=== PATIENT | female | born 1955 | race Caucasian/White ===

== ENCOUNTER 2023-09-29 14:04 | Outpatient (CLI) | payer MEDICARE, SELFPAY ==
--- NOTE | ~2023-09-29 | XR_ITS ---
EXAM: XR abdomen/kub 1V DATE: 09/29/2023 14:28 HISTORY: BILATERAL KIDNEY STONES PREOPERATIVE IMAGING . COMPARISON: None available. FINDINGS: Soft tissue anchors over the mid and left abdomen. Clear lung bases. Normal bowel gas patte rn. No organomegaly. Degenerative changes in the lumbar spine and hips. Pelvic phleboliths. Multiple right lower pole calcifications. The largest on the left measures 2.6 cm. There is a cluster of small er inferior stones in the left lower pole. 11 mm right lower pole stone. IMPRESSION: Bilateral nephrolithiasis. Reviewed, dictated and finalized at location K. LE LAB TECHNICIAN IMPRESSION: Bilateral nephrolithiasis.
== END 2023-09-29 14:05 | disposition home or self-care (01) ==
PROVIDERS: PCP Nurse Practitioner Family; Visit Provider Physician Assistant
DX: N20.0 Calculus of kidney (principal)
CPT/HCPCS: 74018

== ENCOUNTER 2023-11-09 09:35 | Outpatient (CLI) | payer MEDICARE, SELFPAY ==
--- NOTE | 2023-11-09 09:41 | ECG_ITS ---
Measurements Intervals [place] Rate: 62 P: 15 HI: 180 QRS: 14 QRSD: 95 T: 40 QT: 403 QTc: 411 Interpretive Statements SINUS RHYTHM LOW VOLTAGE- PRECORDIAL LEADS POOR R WAVE PROGRESSION, ANTERIOR LEADS CONSIDER INFERIOR INFARCT, AGE INDETERMINATE BORDERLINE T WAVE ABNORMALITY- ANTEROLATERAL LEADS BASELINE ARTIFACT- I, II, III, AVR, AVF ABNORMAL ECG NO PREVIOUS ECG AVAILABLE FOR COMPARISON Electronically Signed On 11-09-2023 10:28:56 TOOL MACHINIST by Denzel Barriga D.O.
[2023-11-09 10:36] LABS: Anion Gap 7 mmol/L (8-16); Blood Urea Nitrogen 26 mg/dL (7-17); Calcium 9.8 mg/dL (8.4-10.2); Carbon Dioxide 28 mmol/L (22-30); Chloride 101 mmol/L (98-107); Estimated Glomerular Filt Rate 49; Glucose 99 mg/dL (65-110); Partial Thromboplastin Time 26.1 SECONDS (22.3-36.8); Potassium 4.3 mmol/L (3.4-5.0); Prothrombin Time 13.7 Seconds (11.1-14.7); Sodium 136 mmol/L (137-145)
== END 2023-11-09 09:36 | disposition home or self-care (01) ==
LOC: ANHSURGERY 09:39
PROVIDERS: Anesthesiology; PCP Nurse Practitioner Family; Visit Provider Urology
DX: N20.0 Calculus of kidney (principal); E11.9 Type 2 diabetes mellitus without complications; Z01.818 Encounter for other preprocedural examination
CPT/HCPCS: 36415; 80048; 85610; 85730; 87086; 87088; 93005

== ENCOUNTER 2023-11-12 00:31 | Day surgery (SDC) | payer MEDICARE, SELFPAY ==
[2023-11-02 09:00] VITALS: BMI 35.2
--- NOTE | 2023-11-02 09:21 | PC.NURSE ---
PRE-OP INSTRUCTIONS PLEASE READ CAREFULLY Report to the Outpatient Waiting Room, entrance under the green pavilion located off [facility], at time _0745_ on date _11/12/23_. Planned Procedure Time: _0945_. Time changes happen often and if your time is changed the preop area will call you the afternoon before. - You and your visitor will be asked to self-screen and do not enter if you have any COVID symptoms. - A mask is optional within the hospital at this time. Patients may have clear liquids (water, carbonated beverages, clear teas, apple juice) until 3 hours prior to surgery (0645 AM) with a maximum of 20 ounces. - No food from midnight until time of surgery Take the following medications with a SIP of water the morning of surgery: _GABAPENTIN, LEVOTHYROXINE, & TYLENOL IF NEEDED_ DO NOT STOP ANY OF YOUR OTHER PRESCRIPTION MEDICATIONS PRIOR TO SURGERY ?EXCEPT THE FOLLOWING Medications to discontinue _ASPIRIN INSTRUCTED BY DR. RUTLEDGE_ Medications to discontinue per ANESTHESIA -_VITAMINS/SUPPLEMENTS 3 DAYS PRIOR TO SURGERY, Date to take last dose 11/08/23_ Please no make-up, nail irish, hairspray, perfume, deodorant, or body powder the day of surgery. No jewelry (including any body piercings) or valuables the day of surgery, leave them at home. Please take a shower or bath the night before, or the morning of, surgery with an antibacterial soap. Wear comfortable, loose fitting clothing. - Jewelry must be removed prior to entering the operating room. Rings and piercings that are not removed may be cut off. - The hospital will not accept responsibility for valuables. - Please leave all valuables, including medications, at home the day of surgery. If you are going home after surgery, a licensed flag car driver must drive you home. - NO public transportation without another adult if you receive anesthesia. - We recommend that an adult stay with you for 24 hours following discharge. - We also recommend that you do not drive, make important decision, drink alcoholic beverages, or take any drugs that were not prescribed by your health care provider for at least 24 hours after your discharge time. Follow any additional instructions given to you from your surgeon. If you or anyone in your household have experienced Covid symptoms in the past week, please notify your surgeon or the nurse liaison at the phone number below for possible testing. Telephone instructions given to _PATIENT_and asked if any additional questions and then verbalized understanding. Patient advised to call surgeon office or pre surgery nurse liaison [phone] if any additional questions.
--- NOTE | 2023-11-05 07:52 | P.HP_ITS ---
History of Present Illness History of Present Illness Consent: Risks, benefits, and alternatives have been discussed and questions answered. Patient agrees to proceed with procedure. Chief complaint: 11mm kidney stone Narrative: Jame Mckeon is a 67 year old female he is known to have history of urolithiasis in the past. She recently presented with a somewhat atypical flank pain. Imaging demonstrated significant bilateral kidney stone burden, greatest on the left. She has a 2.9 cm left renal pelvic stone and a 11 mm right renal calculus. We contemplated percutaneous nephrolithotomy but was unable to get the equipment at [facility] and she has elected, instead, to proceed with left ESWL. She is fully aware that this may require multiple procedures or that lithotripsy may not be effective and alternatives will need to be considered. She is aware of the risk of lithotripsy, included but not limited to, adverse cardiopulmonary events, perinephric hematoma, need for additional procedures and hematuria Review of Systems Review of Systems: All systems reviewed & are unremarkable except as noted in HPI and below PMFSH Social History Social History Smoking status: Never smoker Second hand tobacco smoke exposure: No Alcohol intake: current Alcohol use details: RARELY - STATES 1-2 TIMES A YEAR Substance use: never Substance use type: does not use Living arrangements: with family Spiritual care concerns: No Meds Home Medications and Allergies Home Medications Medication Instructions Recorded Confirmed Type Probiotic 1 tab-cap DAILY 11/02/23 11/02/23 History acetaminophen 325 mg tablet 650 mg PO BID PRN Pain 11/02/23 11/02/23 History (Tylenol) aspirin 81 mg capsule 81 mg PO DAILY 11/02/23 11/02/23 History atorvastatin 20 mg tablet 20 mg PO HS 11/02/23 11/02/23 History calcium carbonate 600 mg-vitamin 2 tablet PO DAILY 11/02/23 11/02/23 History D3 5 mcg (200 unit) tablet cholecalciferol (vitamin D3) 50 50 mcg PO DAILY 11/02/23 11/02/23 History mcg (2,000 unit) capsule citalopram 20 mg tablet 20 mg PO HS 11/02/23 11/02/23 History dapagliflozin propanediol 10 mg 10 mg PO QAM 11/02/23 11/02/23 History tablet (Farxiga) dulaglutide 1.5 mg/0.5 mL 1.5 mg subcut WEEKLY 11/02/23 11/02/23 History subcutaneous pen injector (Trulicity) gabapentin 100 mg capsule See Rx Instructions .Route .COMPLEX 11/02/23 11/02/23 History levothyroxine 50 mcg tablet 50 mcg DAILY 11/02/23 11/02/23 History magnesium 200 mg tablet 400 mg PO BID 11/02/23 11/02/23 History omega 3-ydn-syq-fish oil 1,000 mg 2 cap PO DAILY 11/02/23 11/02/23 History (120 mg-180 mg) capsule (Fish Oil) potassium citrate 99 mg capsule 99 mg BID 11/02/23 11/02/23 History spironolactone 25 mg tablet 25 mg PO DAILY 11/02/23 11/02/23 History Allergies Allergy/AdvReac Type Severity Reaction Status Date / Time No Known Allergies Allergy Verified 11/02/23 08:50 Assessment and Plan Assessment and plan (1) Bilateral renal stones: Code(s): N20.0 - Calculus of kidney Status: Acute Assessment and Plan: * cystoscopy left ureteral stent, left ESWL
[2023-11-12] VITALS (8 sets, daily range): BP systolic 100–138; BP diastolic 64–73; PULSE 83–94; RESP 14–20; TEMP 36.2–36.4; O2SAT 90–99
--- NOTE | ~2023-11-12 | XR_ITS ---
Supine and upright views of the abdomen Clinical history: Lithotripsy COMPARISON: 09/29/2023 Findings: Bowel gas pattern is nonspecific. No evidence for obstruction or free air. Bilateral renal stones are stable from prior exam, including large left renal stone measuring approximately 3 cm in d iameter. Evidence of prior herniorrhaphy. Osseous structures are intact. Impression: Bilateral nephrolithiasis, stable from prior exam. Reviewed, dictated and finalized at location M. IOLOGY PHYSICIAN Impression: Bilateral nephrolithiasis, stable from prior exam.
--- NOTE | 2023-11-12 06:31 | WPDHPUPDATE1 ---
History and Physical Update Update Date/Time: 11/12/23 06:31 History and Physical has been reviewed, including an updated exam of the patient. There are NO changes in the patient's condition. Risks, benefits, and alternatives have been discussed and questions answered. Patient agrees to proceed with procedure.
[2023-11-12 06:53] LABS: Glucose Point of Care 128 mg/dl (65-105)
--- NOTE | 2023-11-12 06:56 | WPDANESEPPF ---
Anes - Initial Pre Proc Eval Procedure: Operation Date: 11/12/23 07:30 Proposed Procedures p Left Extracorporeal Shock Wave Lithotripsy - Sunday Garza MD s Cystoscopy with Left Stent Insertion - Sunday Garza MD Date/Time: 11/12/23 06:56 Surgeon: Sunday Garza MD Pre Op Diagnosis: 11mm kidney stone Patient Data Age: 68 Gender: F Height: 1.52 m Weight: 81.81 kg Allergies Allergy/AdvReac Type Severity Reaction Status Date / Time No Known Allergies Allergy Verified 11/02/23 08:50 Home Medications Medication Instructions Recorded Confirmed Type Probiotic 1 tab-cap DAILY 11/02/23 11/02/23 History acetaminophen 325 mg tablet 650 mg PO BID PRN Pain 11/02/23 11/02/23 History (Tylenol) aspirin 81 mg capsule 81 mg PO DAILY 11/02/23 11/02/23 History atorvastatin 20 mg tablet 20 mg PO HS 11/02/23 11/02/23 History calcium carbonate 600 mg-vitamin 2 tablet PO DAILY 11/02/23 11/02/23 History D3 5 mcg (200 unit) tablet cholecalciferol (vitamin D3) 50 50 mcg PO DAILY 11/02/23 11/02/23 History mcg (2,000 unit) capsule citalopram 20 mg tablet 20 mg PO HS 11/02/23 11/02/23 History dapagliflozin propanediol 10 mg 10 mg PO QAM 11/02/23 11/02/23 History tablet (Farxiga) dulaglutide 1.5 mg/0.5 mL 1.5 mg subcut WEEKLY 11/02/23 11/02/23 History subcutaneous pen injector (Trulicity) gabapentin 100 mg capsule See Rx Instructions .Route .COMPLEX 11/02/23 11/02/23 History levothyroxine 50 mcg tablet 50 mcg DAILY 11/02/23 11/02/23 History magnesium 200 mg tablet 400 mg PO BID 11/02/23 11/02/23 History omega 7-gok-iip-fish oil 1,000 mg 2 cap PO DAILY 11/02/23 11/02/23 History (120 mg-180 mg) capsule (Fish Oil) potassium citrate 99 mg capsule 99 mg BID 11/02/23 11/02/23 History spironolactone 25 mg tablet 25 mg PO DAILY 11/02/23 11/02/23 History Laboratory Tests 11/12/23 06:48 POC Capillary Glucose 128 H mg/dl (65-105) Patient hx anesthesia problems: none Family hx anesthesia problems: none Results Review: All pre-operative results and documents have been reviewed as part of the pre-operative evaluation. [facility] Past Medical History Medical History (Updated 11/12/23 @ 06:57 by Alex Adams MD) Diabetes HTN (hypertension) Obesity YANETH (obstructive sleep apnea) Surgical History Surgical History (Updated 11/12/23 @ 07:00 by Alex Adams MD) H/O: hysterectomy Social History Social History Smoking status: Never smoker Second hand tobacco smoke exposure: No Alcohol intake: current Alcohol use details: RARELY - STATES 1-2 TIMES A YEAR Substance use: never Substance use type: does not use Living arrangements: with family Spiritual care concerns: No Anes - Eval Final PreProcedure Day of Procedure 11/12/23 06:56 Patient weight: normal Heart: regular rate and rhythm Lungs: clear to auscultation Airway: Mallampati scale class II Neurological: alert and oriented Last oral intake: >/= 8 hours ASA classification: III Emergent: no Anesthetic plan: proceed Anesthesia type and monitoring: general LMA and standard monitoring Results Review: All pre-operative results and documents have been reviewed as part of the pre-operative evaluation. Informed Consent: The patient's anesthetic plan and its attendant risks and benefits were discussed with the patient/family/POA. Questions were solicited and answers provided to the satisfaction of the patient/family/POA.
[2023-11-12] MEDS: LACTATED RINGERS 1,000 ML 30 ML IV CONT (07:00)
[2023-11-12] MEDS: ceFAZolin 2 GM/D5W 50 ML 2 GM/50 ML BAG IVPB (07:25)
--- NOTE | 2023-11-12 07:45 | P.OP_ITS ---
Procedure Note - Detailed Date of Procedure 11/12/23 Pre-op Diagnosis Large left kidney stone Post-op Diagnosis Same Procedure Performed Cystoscopy, left ureteral stent placement, left ESWL Surgeon Sunday Garza MD Anesthesia General Description of Procedure The patient was brought to the operative suite where she was placed in the frog- legged position on the Dornier lithotripter table. Flexible cystoscopy was undertaken with a 16F flexible cystoscopy. Her urethra and bladder neck were endoscopically normal. The bladder mucosa was normal and there was a single, orthotopic ureteral orifice bilaterally. A 0.035 glidewire was advanced into the [] renal pelvis under fluoroscopy. A 4.8F J-J ureteral stent was positioned with the proximal coil in the renal pelvis and the distal coil in the bladder. The patient was then repositioned in the supine position and the focal point of the lithotriptor was placed at a large left renal calculus. A total of 2500 shocks were delivered at a power setting of 4. There appeared to be good fragmentation of the stone. The patient tolerated the procedure well and was taken to the recovery room in good condition. Drains Yes Packing No Pathology None sent Condition Stable Disposition PACU
[2023-11-12 08:33] LABS: Glucose Point of Care 121 mg/dl (65-105)
== END 2023-11-12 10:15 | disposition home or self-care (01) ==
PROVIDERS: PCP Nurse Practitioner Family; Visit Provider Urology
PROC: (CPT 50590; principal; 2023-11-12 07:30)
PROC: (CPT 52310; 2023-11-12 07:30)
DX: N20.0 Calculus of kidney (principal); E11.9 Type 2 diabetes mellitus without complications; I10 Essential (primary) hypertension; G47.33 Obstructive sleep apnea (adult) (pediatric); E66.9 Obesity, unspecified; Z68.38 Body mass index [BMI] 38.0-38.9, adult; Z79.84 Long term (current) use of oral hypoglycemic drugs; Z79.85 Long-term (current) use of injectable non-insulin antidiabetic drugs
CPT/HCPCS: 52332; 50590; 74018; 82948; C1769; C2617; J0690; J2405; J2704; J3010; J7120

== ENCOUNTER 2023-11-30 14:10 | Outpatient (CLI) | payer MEDICARE, SELFPAY ==
--- NOTE | ~2023-11-30 | XR_ITS ---
Supine and upright views of the abdomen Clinical history: Kidney stone COMPARISON: 11/12/2023 Findings: Bowel gas pattern is nonspecific. No evidence for obstruction or free air. Evidence of prio r herniorrhaphy. Left ureteral stent is in place. Large left renal stones are essentially unchanged. Right renal stone unchanged. Osseous structures are intact. Impression: Stable bilateral nephrolithiasis. Left ureteral stent in place. Reviewed, dictated and finalized at location . SOLUTIONS ARCHITECT Impression: Stable bilateral nephrolithiasis. Left ureteral stent in place.
== END 2023-11-30 14:11 | disposition home or self-care (01) ==
LOC: ANHIMG 14:14
PROVIDERS: PCP Nurse Practitioner Family; Visit Provider Urology
DX: N20.0 Calculus of kidney (principal)
CPT/HCPCS: 74018

== ENCOUNTER 2024-03-08 09:41 | Outpatient (CLI) | payer MEDICARE, SELFPAY ==
--- NOTE | ~2024-03-08 | XR_ITS ---
EXAMINATION: XR abdomen/kub 1V DATE: 03/08/2024 09:54 INDICATION: Kyphosis of kidney, right-sided. TECHNIQUE: A supine view of the abdomen on 2 radiographs was obtained. COMPARISON: CT abdomen and pelvis 03/08/2024 FINDINGS: There are no dilated loops of bowel. There are changes of ventral hernia repair. There is a 9 mm stone in the right kidney. IMPRESSION: 1. 9 mm stone in the right kidney. Reviewed, dictated and finalized at location A.
--- NOTE | ~2024-03-08 | CT_ITS ---
EXAMINATION: CT abdomen pelvis wo con DATE: 03/08/2024 09:58 INDICATION: Bilateral kidney stones TECHNIQUE: Computed tomography (CT) of the abdomen and pelvis was performed without intravenous contr ast. Automated exposure control and iterative reconstruction technique were employed. Exam dose: 696 .21 mGy-cm total exam DLP. COMPARISON: 03/08/2024 KUB 11/30/2023 KUB FINDINGS: No consolidation or mass density is identified in the included lower lung zones. Cardiomega ly. Coronary artery calcification. No pericardial or pleural effusion. Multiple probable small stones (versus less likely milk of calcium bile) are noted in the dependent a spect of the gallbladder; this can be confirmed by gallbladder ultrasound examination. No gallbladder wall thickening or pericholecystic fluid or fat stranding is noted. The liver, spleen, pancreas and the bile ducts and pancreatic duct are unremarkable. Normal morphology of the adrenal glands. Approximately 7 x 9.7 mm nonobstructing right renal calculus with attenuation of 1130 Hounsfield unit s is noted. Interval resolution of all left urinary tract calculi and removal of left internal urinary stent sinc e 11/30/2023. The urinary bladder is unremarkable. Status post hysterectomy. Diverticulosis of the sigmoid and descending colon, occasional diverticula of the transverse colon an d hepatic flexure; no CT evidence of diverticulitis. No bowel obstruction, bowel wall thickening, pne umatosis or intraperitoneal free air. There is atherosclerotic calcification but normal caliber of the abdominal aorta. No intraperitoneal or retroperitoneal or pelvic mass lesion or adenopathy or ascites. Fat-containing umbilical hernia. Supraumbilical ventral abdominal wall mesh hernia repair. IMPRESSION: Complete resolution of left urinary tract calculi and removal of left internal urinary s tent since November 30, 2023 7 x 9.7 mm nonobstructing right renal calculus (1130 Hounsfield units) Diverticulosis of left and right colon; no evidence of diverticulitis Cholelithiasis Cardiomegaly, coronary artery calcification Reviewed, dictated and finalized at Location A. Reviewed, dictated and finalized at location B. IMPRESSION: Complete resolution of left urinary tract calculi and removal of l eft internal urinary stent since November 30, 2023 7 x 9.7 mm nonobstructing right renal calculus (1130 Hounsfield units) Diverticulosis of left and right colon; no evidence of diverticulitis Cholelithiasis Cardiomegaly, coronary artery calcification
== END 2024-03-08 09:42 | disposition home or self-care (01) ==
PROVIDERS: PCP Nurse Practitioner Family; Visit Provider Urology
DX: N20.0 Calculus of kidney (principal); K57.30 Diverticulosis of large intestine without perforation or abscess without bleeding; I51.7 Cardiomegaly; I25.10 Atherosclerotic heart disease of native coronary artery without angina pectoris
CPT/HCPCS: 74018; 74176

== ENCOUNTER 2024-04-06 09:53 | Outpatient (CLI) | payer MEDICARE, SELFPAY ==
[2024-04-06 10:43] LABS: Anion Gap 9 mmol/L (4-12); Blood Urea Nitrogen 29 mg/dL (7-17); Calcium 9.6 mg/dL (8.4-10.2); Carbon Dioxide 25 mmol/L (22-30); Chloride 103 mmol/L (98-107); Estimated Glomerular Filt Rate 45; Glucose 159 mg/dL (65-110); Potassium 4.4 mmol/L (3.4-5.0); Sodium 137 mmol/L (137-145)
[2024-04-06 10:47] LABS: INR 1.1; Prothrombin Time 14.2 Seconds (11.1-14.7)
[2024-04-06 10:48] LABS: Partial Thromboplastin Time 25.5 Seconds (22.3-36.8)
== END 2024-04-06 09:54 | disposition home or self-care (01) ==
LOC: ANHSURGERY 09:59
PROVIDERS: Anesthesiology; PCP Nurse Practitioner Family; Visit Provider Urology
DX: N20.0 Calculus of kidney (principal); E11.9 Type 2 diabetes mellitus without complications; Z01.818 Encounter for other preprocedural examination
CPT/HCPCS: 36415; 80048; 85610; 85730; 87086

== ENCOUNTER 2024-04-14 00:51 | Day surgery (SDC) | payer MEDICARE, SELFPAY ==
[2024-03-27 12:36] VITALS: BMI 37.4
--- NOTE | 2024-03-27 13:02 | PC.NURSE ---
Report to the Outpatient Waiting Room, entrance under the green pavilion located off [facility], at time __10:30AM on date ___03/31/24____. Planned Procedure Time: __12:30PM . Time changes happen often and if your time is changed the preop area will call you the afternoon before. - You and your visitor will be asked to self-screen and do not enter if you have any COVID symptoms. - A mask is optional within the hospital at this time. Patients may have clear liquids (water, carbonated beverages, clear teas, apple juice) until 3 hours prior to surgery with a maximum of 20 ounces. - No food from midnight until time of surgery. Take the following medications with a SIP of water the morning of surgery: ___GABAPENTIN, LEVOTHYROXINE DO NOT STOP ANY OF YOUR OTHER PRESCRIPTION MEDICATIONS PRIOR TO SURGERY ?EXCEPT THE FOLLOWING Medications to discontinue per physician HOLD ASPIRIN 7 DAYS PRE-OP PER DR RUTLEDGE- LAST DOSE 03/23/24. CALL OUT TO DR RUTLEDGE' OFFICE TO REPORT LAST ASPIRIN WAS TAKEN TODAY 03/27/24. HOLD ALL VITAMINS/SUPPLEMENTS 3 DAYS PRE-OP PER ANESTHESIA- LAST DOSE 03/27/24. Please no make-up, nail pitcairn islander, hairspray, perfume, deodorant, or body powder the day of surgery. No jewelry (including any body piercings) or valuables the day of surgery, leave them at home. Please take a shower or bath the night before, or the morning of, surgery with an antibacterial soap. Wear comfortable, loose fitting clothing. - Jewelry must be removed prior to entering the operating room. Rings and piercings that are not removed may be cut off. - The hospital will not accept responsibility for valuables. - Please leave all valuables, including medications, at home the day of surgery. If you are going home after surgery, a licensed wagon driver salesperson must drive you home. - NO public transportation without another adult if you receive anesthesia. - We recommend that an adult stay with you for 24 hours following discharge. - We also recommend that you do not drive, make important decision, drink alcoholic beverages, or take any drugs that were not prescribed by your health care provider for at least 24 hours after your discharge time. Follow any additional instructions given to you from your surgeon. If you or anyone in your household have experienced Covid symptoms in the past week, please notify your surgeon or the nurse liaison at the phone number below for possible testing. Telephone instructions given to ____PATIENT and asked if any additional questions and then verbalized understanding. Patient advised to call surgeon office or pre surgery nurse liaison [phone] if any additional questions.
--- NOTE | 2024-03-28 08:40 | PC.NURSE ---
RESCHEDULED BECAUSE OF NOT BEING UNABLE TO HOLD ASPIRIN FOR FULL 7 DAYS. NEW DATE/TIME AND STOPPING OF CLEAR LIQUIDS AT 4:30AM GIVEN TO PATIENT. SHE RELAYS UNDERSTANDING. Report to the Outpatient Waiting Room, entrance under the green pavilion located off [facility], at time _6:00AM on date __04/14/24 . Planned Procedure Time: ___7:30AM . Time changes happen often and if your time is changed the preop area will call you the afternoon before. - You and your visitor will be asked to self-screen and do not enter if you have any COVID symptoms. - A mask is optional within the hospital at this time. Patients may have clear liquids (water, carbonated beverages, clear teas, apple juice) until 3 hours prior to surgery with a maximum of 20 ounces. - No food from midnight until time of surgery. Take the following medications with a SIP of water the morning of surgery: ___GABAPENTIN & LEVOTHYROXINE DO NOT STOP ANY OF YOUR OTHER PRESCRIPTION MEDICATIONS PRIOR TO SURGERY ?EXCEPT THE FOLLOWING Medications to discontinue per physician HOLD ASPIRIN 7 DAYS PRE-OP PER DR RUTLEDGE- LAST DOSE- 04/06/24. HOLD ALL VITAMINS/SUPPLEMENTS 3 DAYS PRE-OP PER ANESTHESIA- LAST DOSE 04/10/24. Please no make-up, nail zambian, hairspray, perfume, deodorant, or body powder the day of surgery. No jewelry (including any body piercings) or valuables the day of surgery, leave them at home. Please take a shower or bath the night before, or the morning of, surgery with an antibacterial soap. Wear comfortable, loose fitting clothing. - Jewelry must be removed prior to entering the operating room. Rings and piercings that are not removed may be cut off. - The hospital will not accept responsibility for valuables. - Please leave all valuables, including medications, at home the day of surgery. If you are going home after surgery, a licensed van cdl driver must drive you home. - NO public transportation without another adult if you receive anesthesia. - We recommend that an adult stay with you for 24 hours following discharge. - We also recommend that you do not drive, make important decision, drink alcoholic beverages, or take any drugs that were not prescribed by your health care provider for at least 24 hours after your discharge time. Follow any additional instructions given to you from your surgeon. If you or anyone in your household have experienced Covid symptoms in the past week, please notify your surgeon or the nurse liaison at the phone number below for possible testing. Telephone instructions given to ____PATIENT and asked if any additional questions and then verbalized understanding. Patient advised to call surgeon office or pre surgery nurse liaison [phone] if any additional questions.
[2024-04-14] VITALS (9 sets, daily range): BP systolic 113–146; BP diastolic 54–97; PULSE 57–84; RESP 11–20; TEMP 36.1–37.1; O2SAT 96–99
--- NOTE | ~2024-04-14 | XR_ITS ---
Supine and upright views of the abdomen Clinical history: Lithotripsy COMPARISON: 03/08/2024 Findings: Bowel gas pattern is nonspecific. Evidence of prior herniorrhaphy. No evidence for obstruct ion or free air. Stable 11 mm right lower pole renal stone.. Osseous structures are intact. Impression: Stable 11 mm right renal stone. Reviewed, dictated and finalized at [facility]. Impression: Stable 11 mm right renal stone.
--- NOTE | 2024-04-14 06:15 | WPDHPUPDATE1 ---
History and Physical Update Update Date/Time: 04/14/24 06:15 History and Physical has been reviewed, including an updated exam of the patient. There are NO changes in the patient's condition. Risks, benefits, and alternatives have been discussed and questions answered. Patient agrees to proceed with procedure.
[2024-04-14] MEDS: LACTATED RINGERS 1,000 ML 30 ML IV CONT (06:50)
[2024-04-14 07:01] LABS: Glucose Point of Care 135 mg/dl (65-105)
--- NOTE | 2024-04-14 07:14 | WPDANESEPPF ---
Anes - Initial Pre Proc Eval Procedure: Operation Date: 04/14/24 07:30 Proposed Procedures p Right Renal Extracorporeal Shock Wave Lithotripsy - Sunday Garza MD Date/Time: 04/14/24 07:14 Surgeon: Sunday Garza MD Pre Op Diagnosis: right renal stone Patient Data Age: 68 Gender: F Height: 1.52 m Weight: 96.7 kg Last Vital Signs Temp 37.1 C 04/14/24 06:45 Pulse 73 04/14/24 06:45 Resp 18 04/14/24 06:45 BP 125/54 L 04/14/24 06:45 Pulse Ox 97 04/14/24 06:45 O2 Del Method Room Air 04/14/24 06:45 Allergies Allergy/AdvReac Type Severity Reaction Status Date / Time morphine AdvReac Hypotension Verified 04/14/24 06:43 Home Medications Medication Instructions Recorded Confirmed Type aspirin 81 mg capsule 81 mg PO DAILY 11/02/23 04/14/24 History atorvastatin 20 mg tablet 20 mg PO HS 11/02/23 04/14/24 History calcium carbonate 600 mg-vitamin 2 tablet PO DAILY 11/02/23 04/14/24 History D3 5 mcg (200 unit) tablet cholecalciferol (vitamin D3) 50 50 mcg PO DAILY 11/02/23 04/14/24 History mcg (2,000 unit) capsule citalopram 20 mg tablet 20 mg PO HS 11/02/23 04/14/24 History dapagliflozin propanediol 10 mg 10 mg PO QAM 11/02/23 04/14/24 History tablet (Farxiga) dulaglutide 1.5 mg/0.5 mL 1.5 mg subcut WEEKLY 11/02/23 04/14/24 History subcutaneous pen injector (Trulicity) gabapentin 100 mg capsule See Rx Instructions .Route 11/02/23 04/14/24 History .COMPLEX PRN Pain levothyroxine 50 mcg tablet 50 mcg PO QAM 11/02/23 04/14/24 History omega 8-iyo-dmn-fish oil 1,000 mg 2 cap PO DAILY 11/02/23 04/14/24 History (120 mg-180 mg) capsule (Fish Oil) potassium citrate 99 mg capsule 99 mg PO BID 11/02/23 04/14/24 History spironolactone 25 mg tablet 25 mg PO QAM 11/02/23 04/14/24 History hydrocodone 5 mg-acetaminophen 325 1 - 2 tablet PO Q6H PRN pain #20 11/12/23 04/14/24 Rx mg tablet tabs acetaminophen 500 mg capsule 1,000 mg PO Q6H PRN Pain 03/27/24 04/14/24 History fiber 1 tablet PO QAM 03/27/24 04/14/24 History lactobacillus combination no.4 3 3,000 mmu cells PO DAILY 03/27/24 04/14/24 History billion cell capsule (Probiotic) magnesium oxide 400 mg PO BID 03/27/24 04/14/24 History Laboratory Tests 04/14/24 06:56 POC Capillary Glucose 135 H mg/dl (65-105) Patient hx anesthesia problems: post op nausea/vomiting Family hx anesthesia problems: none Results Review: All pre-operative results and documents have been reviewed as part of the pre-operative evaluation. [facility] Past Medical History Medical History Diabetes HTN (hypertension) Obesity YANETH (obstructive sleep apnea) Surgical History Surgical History H/O: hysterectomy Social History Social History Smoking status: Never smoker Second hand tobacco smoke exposure: No Alcohol intake: current Alcohol use details: RARELY - STATES 1-2 TIMES A YEAR Substance use: never Substance use type: does not use Living arrangements: with family Additional living arrangements comments: HUSB Spiritual care concerns: No Anes - Eval Final PreProcedure Day of Procedure 04/14/24 07:14 Patient weight: morbidly obese Heart: regular rate and rhythm Lungs: clear to auscultation Airway: Mallampati scale class II Neurological: alert and oriented Last oral intake: >/= 8 hours ASA classification: III Emergent: no Anesthetic plan: proceed Anesthesia type and monitoring: general LMA and standard monitoring Results Review: All pre-operative results and documents have been reviewed as part of the pre-operative evaluation. Informed Consent: The patient's anesthetic plan and its attendant risks and benefits were discussed with the patient/family/POA. Questions were solicited and answers provided to the satisfaction of th
[2024-04-14] MEDS: ceFAZolin 2 GM/D5W 50 ML 2 GM/50 ML BAG IVPB (07:22)
--- NOTE | 2024-04-14 07:54 | W.PM.PROC2 ---
Procedure Note - Detailed Date of Procedure 04/14/24 Pre-op Diagnosis Right renal stone Post-op Diagnosis Same Procedure Performed Right ESWL Surgeon Sunday Garza MD Anesthesia General Description of Procedure The patient was brought to the operative suite where he was placed in the supine position on the Dornier lithotripsy table. The focal point of the lithotripter was placed at a 1cm right renal calculus. A total of 2500 shocks were delivered at a power setting of 4. There appeared to be good fragmentation of the stone. The patient tolerated the procedure well and was taken to the recovery room in good condition. Drains No Packing No Pathology None sent Complications No immediate complications
[2024-04-14] MEDS: fentaNYL CITRATE INJ (*CRX) 100 MCG/2 ML VIAL 25 MCG IV PUSH (08:20)
[2024-04-14 08:21] LABS: Glucose Point of Care 148 mg/dl (65-105)
[2024-04-14] MEDS: traMADol HCL (*CRX) 50 MG TABLET PO (08:54)
== END 2024-04-14 09:58 | disposition home or self-care (01) ==
PROVIDERS: PCP Nurse Practitioner Family; Visit Provider Urology
PROC: (CPT 50590; principal; 2024-04-14 07:30)
DX: N20.0 Calculus of kidney (principal); E11.9 Type 2 diabetes mellitus without complications; I10 Essential (primary) hypertension; G47.33 Obstructive sleep apnea (adult) (pediatric); E66.9 Obesity, unspecified; Z68.41 Body mass index [BMI] 40.0-44.9, adult
CPT/HCPCS: 50590; 74018; 82948; A9270; J0690; J1100; J2250; J2405; J2704; J3010; J7120

== ENCOUNTER 2024-05-05 09:25 | Outpatient (CLI) | payer MEDICARE, SELFPAY ==
--- NOTE | ~2024-05-05 | XR_ITS ---
XR abdomen/kub 1V Ordering provider: Sunday Garza History: . N20.0 - Calculus of kidney, R/O RT SIDE STONE . Comparison: April 14, 2024 FINDINGS: BOWEL: Nonobstructive bowel gas pattern. ORGANOMEGALY: None. SIGNIFICANT PATHOLOGIC CALCIFICATIONS: Stone in the right kidney lower pole unchanged from previous e xamination. OTHER: Degenerative changes of the spine. Postoperative changes in the anterior abdominal wall. No fr ee air is seen under the diaphragm. IMPRESSION: NO ACUTE ABDOMINAL FINDINGS. Right kidney stone. Reviewed, dictated and finalized at location A.
== END 2024-05-05 09:26 | disposition home or self-care (01) ==
PROVIDERS: PCP Nurse Practitioner Family; Visit Provider Urology
DX: N20.0 Calculus of kidney (principal)
CPT/HCPCS: 74018

== ENCOUNTER 2024-06-14 11:18 | Outpatient (CLI) | payer MEDICARE, SELFPAY ==
[2024-06-14 12:08] LABS: Anion Gap 12 mmol/L (4-12); Blood Urea Nitrogen 24 mg/dL (7-17); Calcium 9.8 mg/dL (8.4-10.2); Carbon Dioxide 24 mmol/L (22-30); Chloride 99 mmol/L (98-107); Estimated Glomerular Filt Rate 49; Glucose 141 mg/dL (65-110); Potassium 4.6 mmol/L (3.4-5.0); Sodium 135 mmol/L (137-145)
[2024-06-14 12:14] LABS: Prothrombin Time 13.9 Seconds (11.1-14.7)
[2024-06-14 12:15] LABS: Partial Thromboplastin Time 25.4 Seconds (22.3-36.8)
== END 2024-06-14 11:19 | disposition home or self-care (01) ==
PROVIDERS: Anesthesiology; PCP Nurse Practitioner Family; Visit Provider Urology
DX: Z01.818 Encounter for other preprocedural examination (principal); N20.0 Calculus of kidney; I10 Essential (primary) hypertension; Z51.81 Encounter for therapeutic drug level monitoring
CPT/HCPCS: 36415; 80048; 85610; 85730; 87086

== ENCOUNTER 2024-06-23 00:40 | Day surgery (SDC) | payer MEDICARE, SELFPAY ==
[2024-06-14 09:45] VITALS: BMI 37.0
--- NOTE | 2024-06-14 10:03 | PC.NURSE ---
Report to the Outpatient Waiting Room, entrance under the green pavilion located off [facility], at time __0930am on date _06/23/24 . Planned Procedure Time: _11:30am .? Time changes happen often and if your time is changed the preop area will call you the afternoon before. - You and your visitor will be asked to self-screen and do not enter if you have any COVID symptoms. Please call surgeon if you need to reschedule. - A mask is optional within the hospital at this time. Patients may have clear liquids (water, carbonated beverages, clear teas, apple juice) until 3 hours prior to surgery ( 0830am) with a maximum of 20 ounces. - No food from midnight until time of surgery and no smoking Take only the following medications with a SIP of water on the morning of surgery: ____Levothyroxine & Gabapentin. May take tylenol or Hydrocodone as needed for pain. DO NOT STOP ANY OF YOUR OTHER PRESCRIPTION MEDICATIONS PRIOR TO SURGERY EXCEPT THE FOLLOWING Medications to discontinue per physician ____Hold ASA and any NSAIDS [address] Garza Date to take last dose___06/15/24 Hold all vitamins, supplements, herbs, probiotics 3 days prior to surgery per Anesthesia, last dose will be 06/19/24. Please no make-up, nail mexican, hairspray, perfume, deodorant, or body powder the day of surgery.? No jewelry (including any body piercings) or valuables the day of surgery, leave them at home.? Please take a shower or bath the night before, or the morning of, surgery with an antibacterial soap.? Wear comfortable, loose fitting clothing.? Children are encouraged to wear pajamas. - Jewelry must be removed prior to entering the operating room.? Rings and piercings that are not removed may be cut off. - The hospital will not accept responsibility for valuables.? - Please leave all valuables, including medications, at home the day of surgery. If you are going home after surgery, a licensed commercial front load driver must drive you home.? - NO public transportation without another adult if you receive anesthesia. - We recommend that an adult stay with you for 24 hours following discharge. - We also recommend that you do not drive, make important decision, drink alcoholic beverages, or take any drugs that were not prescribed by your health care provider for at least 24 hours after your discharge time. Follow any additional instructions given to you from your surgeon. Telephone instructions given to __patient and asked if any additional questions and then verbalized understanding. Patient advised to call surgeon office or pre surgery nurse liaison [phone] if any additional questions.
--- NOTE | 2024-06-14 14:42 | PM.HPGS ---
History of Present Illness History of Present Illness Consent: Risks, benefits, and alternatives have been discussed and questions answered. Patient agrees to proceed with procedure. Chief complaint: Rt Renal Kidney Stone Narrative: Jame Mckeon is a 68 year old female who is status post left percutaneous nephrolithotomy by Dr. Flores in the recent past. Follow-up imaging shows a 1 cm right lower calyceal stone. After discussion of options she is elected for right ESWL. She is aware of alternative treatment options and aware of the risks of this including, but not limited to, need for additional procedures, hematuria and perinephric hematoma. Review of Systems Cardiovascular: Cardiovascular: Denies chest pain, Denies lightheadedness, Denies palpitations and Denies dyspnea Respiratory: Respiratory: Denies dyspnea Gastrointestinal: Gastrointestinal: Denies diarrhea, Denies nausea and Denies vomiting Genitourinary: Genitourinary: Denies hematuria and Denies dysuria Endocrine: Endocrine: Denies palpitations PMFSH Past Medical History Medical History Diabetes HTN (hypertension) Obesity YANETH (obstructive sleep apnea) Surgical History Surgical History H/O: hysterectomy Social History Social History Smoking status: Never smoker Second hand tobacco smoke exposure: No Alcohol intake: never Alcohol use details: RARELY - STATES 1-2 TIMES A YEAR Substance use: never Substance use type: does not use Living arrangements: with family Additional living arrangements comments: Spiritual care concerns: No Meds Home Medications and Allergies Home Medications Medication Instructions Recorded Confirmed Type aspirin 81 mg capsule 81 mg PO DAILY 11/02/23 06/14/24 History atorvastatin 20 mg tablet 20 mg PO HS 11/02/23 06/14/24 History calcium carbonate 600 mg-vitamin 2 tablet PO DAILY 11/02/23 06/14/24 History D3 5 mcg (200 unit) tablet cholecalciferol (vitamin D3) 50 50 mcg PO DAILY 11/02/23 06/14/24 History mcg (2,000 unit) capsule citalopram 20 mg tablet 20 mg PO HS 11/02/23 06/14/24 History dapagliflozin propanediol 10 mg 10 mg PO QA 11/02/23 06/14/24 History tablet (Farxiga) dulaglutide 1.5 mg/0.5 mL 1.5 mg subcut WEEKLY 11/02/23 06/14/24 History subcutaneous pen injector (Trulicity) gabapentin 100 mg capsule See Rx Instructions .Route 11/02/23 06/14/24 History .COMPLEX PRN Pain levothyroxine 50 mcg tablet 50 mcg PO QAM 11/02/23 06/14/24 History omega 9-ymb-hcv-fish oil 1,000 mg 2 cap PO DAILY 11/02/23 06/14/24 History (120 mg-180 mg) capsule (Fish Oil) spironolactone 25 mg tablet 25 mg PO QAM 11/02/23 06/14/24 History hydrocodone 5 mg-acetaminophen 325 1 - 2 tablet PO Q6H PRN pain #20 11/12/23 06/14/24 Rx mg tablet tabs acetaminophen 500 mg capsule 1,000 mg PO Q6H PRN Pain 03/27/24 06/14/24 History fiber 1 tablet PO QAM 03/27/24 06/14/24 History lactobacillus combination no.4 3 3,000 mmu cells PO DAILY 03/27/24 06/14/24 History billion cell capsule (Probiotic) magnesium oxide 400 mg PO BID 03/27/24 06/14/24 History potassium chloride 20 mEq 20 meq PO BID 06/14/24 06/14/24 History tablet,extended release(part/cryst) Allergies Allergy/AdvReac Type Severity Reaction Status Date / Time morphine AdvReac Intermediate Hypotension Verified 06/14/24 09:46 Exam Const: General: no acute distress Resp: Effort & Inspection: normal respiratory effort GI: Inspection: non-distended GI Palp: No abdominal tenderness and No Guarding due to palpation present (GI) Auscultation: normal bowel sounds Assessment and Plan Assessment and plan (1) Right renal stone: Code(s): N20.0 - Calculus of kidney Status: Acute Assessment and Plan: Right ESWL
[2024-06-23] VITALS (8 sets, daily range): BP systolic 126–144; BP diastolic 64–82; PULSE 67–78; RESP 12–18; TEMP 36.2–36.7; O2SAT 94–100
--- NOTE | ~2024-06-23 | XR_ITS ---
EXAMINATION: XR abdomen/kub 1V DATE: 06/23/2024 08:53 INDICATION: Right nephrolithiasis TECHNIQUE: A supine view of the abdomen on 2 radiographs was obtained. COMPARISON: 05/05/2024 FINDINGS: Persistent cluster of stones at the lower pole the right kidney the largest stone measuring up to 7 m m. No dilated loops of bowel to suggest obstruction. Multiple metallic coils consistent with ventral hernia mesh repair. Visualized lung bases are clear. Severe lower lumbar facet osteoarthritis. IMPRESSION: 1. Cluster of several stones measuring up to 7 mm in a lower pole calyx of the right kidney. Reviewed, dictated and finalized at location A.
--- NOTE | ~2024-06-23 | XR_ITS ---
EXAMINATION: XR retrograde pyelo w/stent RT DATE: 06/23/2024 13:01 INDICATION: Right internal ureteral stent placement TECHNIQUE: Fluoroscopic images from a right internal ureteral stent placement are submitted for steffen bean 54 seconds of fluoroscopy time. FINDINGS: There is a right double-J internal ureteral stent projecting in expected position, with proximal [place] loop at the level of the renal pelvis and distal loop in the pelvis within the bladder lumen. IMPRESSION: 1. Right internal ureteral stent placement. Please refer to real-time procedural findings for jackelyn ls. Reviewed, dictated and finalized at location B. IMPRESSION: 1. Right internal ureteral stent placement. Please refer to real-time procedu ral findings for details.
--- NOTE | 2024-06-23 08:23 | WPDANESEPPF ---
Anes - Initial Pre Proc Eval Procedure: Operation Date: 06/23/24 11:00 Proposed Procedures p Right Extracorporeal Shock Wave Lithotripsy - Sunday Garza MD Date/Time: 06/23/24 08:23 Surgeon: Sunday Garza MD Pre Op Diagnosis: Rt Renal Kidney Stone Patient Data Age: 68 Gender: F Height: 1.52 m Weight: 86 kg Allergies Allergy/AdvReac Type Severity Reaction Status Date / Time morphine AdvReac Intermediate Hypotension Verified 06/23/24 09:48 Home Medications Medication Instructions Recorded Confirmed Type aspirin 81 mg capsule 81 mg PO DAILY 11/02/23 06/23/24 History atorvastatin 20 mg tablet 20 mg PO HS 11/02/23 06/14/24 History calcium carbonate 600 mg-vitamin 2 tablet PO DAILY 11/02/23 06/14/24 History D3 5 mcg (200 unit) tablet cholecalciferol (vitamin D3) 50 50 mcg PO DAILY 11/02/23 06/14/24 History mcg (2,000 unit) capsule citalopram 20 mg tablet 20 mg PO HS 11/02/23 06/14/24 History dapagliflozin propanediol 10 mg 10 mg PO QAM 11/02/23 06/14/24 History tablet (Farxiga) dulaglutide 1.5 mg/0.5 mL 1.5 mg subcut WEEKLY 11/02/23 06/14/24 History subcutaneous pen injector (Trulicity) gabapentin 100 mg capsule See Rx Instructions .Route 11/02/23 06/14/24 History .COMPLEX PRN Pain levothyroxine 50 mcg tablet 50 mcg PO QAM 11/02/23 06/14/24 History omega 2-iti-spy-fish oil 1,000 mg 2 cap PO DAILY 11/02/23 06/14/24 History (120 mg-180 mg) capsule (Fish Oil) spironolactone 25 mg tablet 25 mg PO QAM 11/02/23 06/14/24 History hydrocodone 5 mg-acetaminophen 325 1 - 2 tablet PO Q6H PRN pain #20 11/12/23 06/14/24 Rx mg tablet tabs acetaminophen 500 mg capsule 1,000 mg PO Q6H PRN Pain 03/27/24 06/14/24 History fiber 1 tablet PO QAM 03/27/24 06/14/24 History lactobacillus combination no.4 3 3,000 mmu cells PO DAILY 03/27/24 06/14/24 History billion cell capsule (Probiotic) magnesium oxide 400 mg PO BID 03/27/24 06/14/24 History potassium chloride 20 mEq 20 meq PO BID 06/14/24 06/14/24 History tablet,extended release(part/cryst) Patient hx anesthesia problems: none Family hx anesthesia problems: none Results Review: All pre-operative results and documents have been reviewed as part of the pre-operative evaluation. [facility] Past Medical History Medical History (Updated 06/23/24 @ 08:23 by Peter Fuentes DO) Diabetes HTN (hypertension) Obesity YANETH (obstructive sleep apnea) PONV (postoperative nausea and vomiting) TIA (transient ischemic attack) Surgical History Surgical History H/O: hysterectomy Social History Social History Smoking status: Never smoker Second hand tobacco smoke exposure: No Alcohol intake: never Alcohol use details: RARELY - STATES 1-2 TIMES A YEAR Substance use: never Substance use type: does not use Living arrangements: with family Additional living arrangements comments: Spiritual care concerns: No Anes - Eval Final PreProcedure Day of Procedure Patient weight: morbidly obese Heart: regular rate and rhythm Lungs: clear to auscultation Airway: Mallampati scale class II Neurological: alert and oriented Last oral intake: >/= 8 hours ASA classification: III Emergent: no Anesthetic plan: proceed Anesthesia type and monitoring: general LMA and standard monitoring
--- NOTE | 2024-06-23 08:52 | WPDHPUPDATE1 ---
History and Physical Update Update Date/Time: 06/23/24 08:52 History and Physical has been reviewed, including an updated exam of the patient. There are NO changes in the patient's condition. Risks, benefits, and alternatives have been discussed and questions answered. Patient agrees to proceed with procedure.
[2024-06-23] MEDS: LACTATED RINGERS 1,000 ML 30 ML IV CONT (09:15)
[2024-06-23 09:45] LABS: Glucose Point of Care 131 mg/dl (65-105)
[2024-06-23] MEDS: ceFAZolin 2 GM/D5W 50 ML 2 GM/50 ML BAG IVPB (12:23)
--- NOTE | 2024-06-23 13:03 | P.OP_ITS ---
Procedure Note - Detailed Date of Procedure 06/23/24 Pre-op Diagnosis Rt Renal Stones Post-op Diagnosis Same Procedure Performed Cystoscopy, right ureteroscopy with laser lithotripsy, stone extraction, retrograde pyelography and stent placement Surgeon Sunday Garza MD Anesthesia General Description of Procedure patient was brought to the operative suite where she was prepped draped in routine sterile fashion while in dorsal lithotomy position after the uneventful induction of a general LMA anesthetic. Cystoscopy was undertaken with a 21 F rigid cystoscope. Bladder neck and urethra were endoscopically normal. Bladder mucosa was normal the hyperemia. There was no intravesical foreign body or neop lasm. A 0.035 in glidewire was advanced in her right renal pelvis. The distal ureter was dilated with an 8 F 10 F dilator and a safety wire was placed. A 11 F/ 13 F access sheath was placed and ureteroscopy was undertaken with a 7.5 F flexible ureteral scope. Retrograde pyelogram was obtained to ensure careful inspection of all calices. She is found to have 4 stones collected in a midpole calyx. The 2 larger stones were extracted with a 1.9 F disposable stone basket. The smaller stones were dusted using a 200 micron Ahsan laser fiber with a dusting mode. All fragments were less than 2 mm. I removed the ureteral scope placed a 4.8 F variable length ureteral stent with the proximal coil into the renal pelvis and distal coil in the bladder. Scopes and wires removed she was taken recovery room good condition. Drains Yes Pathology None sent Complications No immediate complications Condition Stable
[2024-06-23 13:11] LABS: Glucose Point of Care 117 mg/dl (65-105)
[2024-06-23] MEDS: oxyCODONE HCL (*CRX) 5 MG TAB IR PO (14:17)
== END 2024-06-23 14:42 | disposition home or self-care (01) ==
PROVIDERS: PCP Nurse Practitioner Family; Visit Provider Urology
PROC: (CPT 50590; principal; 2024-06-23 11:00)
DX: N20.0 Calculus of kidney (principal); E11.9 Type 2 diabetes mellitus without complications; I10 Essential (primary) hypertension; G47.33 Obstructive sleep apnea (adult) (pediatric); Z86.73 Personal history of transient ischemic attack (TIA), and cerebral infarction without residual deficits; E66.01 Morbid (severe) obesity due to excess calories; Z68.41 Body mass index [BMI] 40.0-44.9, adult; Z79.82 Long term (current) use of aspirin; Z79.84 Long term (current) use of oral hypoglycemic drugs; Z79.85 Long-term (current) use of injectable non-insulin antidiabetic drugs
CPT/HCPCS: 52356; 74018; 74420; 82365; 82948; 88300; A9270; C1769; C1894; C2617; J0690; J1100; J2405; J2704; J3010; J7120; Q9966

== ENCOUNTER 2025-06-26 09:33 | Outpatient (CLI) | payer MEDICARE, SELFPAY ==
--- OUTSIDE RECORDS SUMMARY | 2025-04-03 02:15 | XMS_ITS | Continuity of Care Document ---
Author Organization [facility] Address [address] [place] [address] Phone Care Team Providers Care Device Repair Technician Name Role Phone Dori Mathis OD Unavailable Unavailable Allergies, Adverse Reactions, Alerts Substance Reaction Status Criticality No Known Allergies Active No Inform ation Medications Medication Instructions Dosage Effective Dates (start - stop) Status Comments metformin 500 mg tablet take 1 tablet by oral route 2 times every day with morning and evening meals 500 MG - Active Ozempic 1 mg/dose (4 mg/3 mL) subcutaneous pen injector inject (1MG) by subcutaneous route every week on the same day of each week 1 MG - Active Linzess 72 mcg capsule take 1 capsule by oral route every day on an empty stomach at least 30 minutes before 1st meal of the day 72 MCG - Active escitalopram 20 mg tablet take 1 tablet by oral route every day 20 MG - Active amlodipine 5 mg tablet take 1 tablet by oral route every day 5 MG - Active atorvastatin 20 mg tablet take 1 tablet by oral route every day 20 MG - Active Procedures Procedure Date REFRACTION OPHTH COMP EXAM NEW REFRACTION OFFICE VISIT LEVEL 4 NEW Advance Directives Directive Yes / No Effective Date File Name No Information Encounters Encounter Description Practice Location Reason(s) For Visit Diagnoses Date Provider Providers Copied on Encounter [facility], [address] [place], [id number], [place] tel:[phone] [facility] 1 Diabetic Evaluation (chief complaint) Diabetes, No 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 [address], [place], [id number], [place]. tel:[phone] Referring Provider: Zoe Camargo, [id number] [place], [id number]. tel:[phone] OFFICE VISIT LEVEL 4 NEW [facility], [address], [place], [id number], [place] tel:[phone] [facility] 1 Cataract check (chief complaint) Combined Cataract OUHordeolum Internal RUL Hayes Benavidez. [address], [place], [id number], [place]. tel:[phone] Referring Provider: Zoe Camargo, [address] [place], [address]. tel:[phone] Family History Family Member Type Diagnosis Age At Onset Father Problem Heart Disease Mother Problem Dementia Mother Problem Diabetes mellitus Payers Payer name Insurance type Covered republican ID Authoriza tion(s) Medicare Part B Md CHAPIN [id number] [place] [employer] [id number] Social History Type Description Quantity Date Captured Comments Alcohol Use Details Unknown Caffeine Use Details Unknown Tobacco Use Status Occasional cigarette smoker Smoking Status Heavy tobacco smoker Smoking Tobacco Use Details Cigarette: Age Started: 22 Cigarette: 35 Cigarettes per day Sex Female Chief Complaint And Reason For Visit From encounter dated '04/03/2025 07:15'. Diabetic Evaluation (chief complaint). Description: Patient seen in consultation for evaluation andpossible treatment of Diabetic Evaluation in the right eye and left eye. Patient has been a diabetic for a little over a year, monitors sugars every other day but ranges are unknown, patient does notremember the values. Last A1c is unknown and compliant with oral medication and once a week injectio n. Moderate control of diet. Cataracts OU- Patient states she is having some issues seeing distanceand near, everything looks blurry/cloudy, glasses have not been updated in 2 years. Moderate glare sensitivity at night and will avoid driving at night due to the glare. Reason For Referral Reason For Referral No Information Plan Of Treatment Date Type Action Status Goal Tobacco cessation counseling completed Goal Tobacco cessation counseling completed Appointment Maida Mckeon BOOKED History Of Present Illness Encounter Date Complaint History Of Prese nt Illness Diabetic Evaluation Patient seen in consultation for evaluation and possible treatment of Diabetic Evaluation in the right eye and left eye. Patient has been a diabetic for a little over a year, monitors sugars every other day but ranges are unknown, patient does not remember the values. Last A1c is unknown and compliant with oral medication and once a week injection. Moderate control of diet. Cataracts OU- Patient states she is having some issues seeing distance and near, everything looks blurry/cloudy, glasses have not been updated in 2 years. Moderate glare sensitivity at night and will avoid driving at night due to the glare. Cataract check Patient seen in consultation for evaluation and possible treatment of Cataract check in the right eye and left eye. Pt feels distance vision has been progressively getting worse this past year. Reading is has gotten much worse. when driving at night has to look away from the light or look at the lines on the road to see, also helps her to use high beems to see.Pt. woke up this morning with puffy OD with redness and discharge, in the inner corner of OD feels like something is there. Functional Status Date Functional Assessmen t No Information Instructions Date Instruction Additional Infor abiola Impression/Plan Related to Combi curtis Type Cataract OU Impression/Plan Related to PVD O S Impression/Plan Related to Epith elial (juvenile) corneal dystrophy, bilateral Impression/Plan Related to Diabe fidencio, No Retinopathy OU Released from [facility] ca re/continue with routine eye care provider. Related to Combined Cataract OU Impression/Plan Related to Horde olum Internal RUL Impression/Plan Related to Combi curtis Cataract OU Assessments Type Assessment Date assessment Diabetes, No Retinopathy OU impression Diabetes, No Retinopathy OU: E11 .9 assessment Combined Type Cataract OU impression Combined Type Cataract OU: H25.8 13 assessment PVD OS impression PVD OS: H43.812 assessment Epithelial (juvenile) corneal dy strophy, bilateral impression Epithelial (juvenile) corneal dy strophy, bilateral: H18.523 Patient Care Teams Name Effective Dates (start - stop) Status Members No Information
--- NOTE | ~2025-06-26 | XR_ITS ---
Abdominal radiograph(s) INDICATION: Kidney stones COMPARISON: Abdominal radiograph 06/23/2024 CT abdomen pelvis 03/08/2024 TECHNIQUE: 2 view supine AP abdomen FINDINGS: Scattered colonic gas and stool. Mild scattered small bowel gas. No evidence of organomegaly. Right lower pole renal stones persist. No left-sided stones identified. No acute bony abnormality. IMPRESSION: 1. Right kidney lower pole stones persist. 2. Overall no change. Reviewed, dictated and finalized at location R.
--- OUTSIDE RECORDS SUMMARY | 2025-06-26 10:46 | XMS_ITS | Clinical Summary ---
Author Organization [facility] Address [address] [place] [address] Care Team Providers Care Profile Shaper Operator Name Role Phone Desiree Feliciano NP Primary Care Provider [phone] Olvin Flores MD Unavailable [phone] Allergies Active Allergy Reactions Criticality Noted Date Comments Morphine Other (See comments) High 01/25/2016 Other reaction(s): bp drops Medications acetaminophen ER (TYLENOL) 650 mg 8 hr tablet Take 2 tablets (1,300 mg total) by mouth every 8 (eight) hours as needed for pain Active atorvastatin (LIPITOR) 20 mg tablet Take 1 tablet (20 mg total) by mouth nightly Active calcium carbonate (OS-REGGIE) 1,500 mg (600 mg elemental) tablet Take 1 tablet (1,500 mg total) by mouth every morning Active citalopram (CeleXA) 20 mg tablet Take 1 tablet (20 mg total) by mouth nightly Active cyclobenzaprine (FLEXERIL) 5 mg tablet Take 1 tablet (5 mg total) by mouth 3 (three) times a day as needed for muscle spasms Active omega 6-lya-dig-fish oil (Fish OiL) 1,200 (144-216) mg capsule Take 2 capsules by mouth every morning Active gabapentin (NEURONTIN) 300 mg capsule Take 1 capsule (300 mg total) by mouth 3 (three) times a day 300mg in morning, 300 in afternoon, 600mg nightly Active levothyroxine (SYNTHROID) 50 mcg tablet Take 1 tablet (50 mcg total) by mouth early intervention specialist before breakfast Active magnesium oxide (MAG-OX) 400 mg (241.3 mg elemental magnesium) tabletIndication s:hypomagnesemia Take 1 tablet (400 mg total) by mouth 2 (two) times a day Active potassium chloride ER 20 mEq CR tablet Take 1 tablet (20 mEq total) by mouth 2 (two) times a day Active spironolactone (ALDACTONE) 25 mg tablet Take 1 tablet (25 mg total) by mouth every morning Active cholecalciferol (Vitamin D3) 2000 unit capsule Take 1 capsule (2,000 Units total) by mouth every morning Active dulaglutide (TRULICITY) 1.5 mg/0.5 mL pen injectorIndicati ons:type 2 diabetes mellitus,and weight loss Inject 0.5 mL (1.5 mg total) under the skin once a week On Wednesdays Active dapagliflozin propanediol (FARXIGA) 10 mg tablet Take 1 tablet (10 mg total) by mouth every morning Active HYDROcodone-acet aminophen (NORCO) 5-325 mg per tabletIndication s:Pain Take 1 tablet by mouth every 6 (six) hours as needed for pain Active aspirin 81 mg chewable tablet Take 1 tablet (81 mg total) by mouth every morning Resume in 1 week 4 Active Active Problems Problem Noted Date Diagnosed Date Renal stone 01/11/2024 PONV (postoperative nausea and vomiting) 024 Immunizations Immunization Administration Dates Next Due Influenza, Unspecified 07/18/2023 Surgical History Surgery Date Site/Laterality Comments HERNIA REPAIR x3 HYSTERECTOMY PERCUTANEOUS NEPHROSTOMY PCN LEFT 12/28/2023 Left NEPHROURETERAL STENT PLACEME NT EXISTING ACCESS LEFT 01/11/2024 Left URETERAL STENT PLACEMENT VIA EXISTING TRACT LEFT 2023 Left Medical History Medical History Date Comments Calculus of kidney Migraine Sleep apnea Type 2 diabetes mellitus Hyperlipidemia Diverticulosis PONV (postoperative nausea and vomiting) Social History Tobacco Use Types Packs/Day Years Used Date Smoking Tobacco: Never Smokeless Tobacco: Never Tobacco Cessation:Counseling Given: Not Answered AUDIT-C Answer Date Recorded Q1: How often do you have a drink containing alc ohol? Monthly or less 01/11/2024 Q2: How many drinks containi ng alcohol do you have on a typical day when you are drinking? 1 or 2 01/11/2024 Q3: How often do you have si x or more drinks on one occasion? Never 01/11/2024 Personal Safety Answer Date Recorded Have you ever been in or are you currently in a harmful physical or emotional relationship or is someone making you feel afraid or unsafe? 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 Gender Identity Not on file Sexual Orientation Not on file Obstetrics History Last Filed Vital Signs Vital Sign Reading Time Taken Comments Blood Pressure 120/64 01/13/2024 8:07 AM CDT Pulse 78 01/13/2024 8:07 AM CDT Temperature 36.7 C (98.1 F) 01/13/2024 8:07 AM CDT Respiratory Rate 16 01/13/2024 8:07 AM CDT Oxygen Saturation 100% 01/13/2024 8:07 AM CDT Inhaled Oxygen Concentration - - Weight 86.2 kg (190 lb) 01/11/2024 7:53 AM CDT Height 152.4 cm (5') 01/11/2024 7:53 AM CDT Body Mass Index 37.11 01/11/2024 7:53 AM CDT Plan of Treatment Health Maintenance Due Date Last Done Comments Breast Cancer Screening-Mammogram 1954 Colon Cancer Screening-Colonoscopy 1954 Depression Screening 1954 Hepatitis C Screening 1954 Osteoporosis Screening-Bone Density Scan 1954 DTaP/Tdap/Td Vaccine (1 - Tdap) 1965 Hepatitis B Screening 1972 Zoster Vaccine (1 of 2) 2004 Well Visit 65+ 2019 Covid-19 Vaccine (2023-2 5 season) 2024 08/06/2023, 07/30/2022, 02/27/2022, Additional history exists Fall Risk Assessment 01/12/2025 01/13/2024 Influenza Vaccine (#1) 2025 , 07/18/2023, 08/05/2022, Additional history exists Pneumococcal vaccine 65+ Completed 01/07/2023, 12/2021 Medical Devices Implanted Type Area Manager Fine Dining Device Identifier Shelf Expiration Date Model / Serial / Lot [employer] Amplatz 8.5fr 24cm 6 Sideport Introducer Catheter String [id number] - [id number] Implanted:Qty: 1 on 01/12/2024 at [facility] [employer] 07/05/2026 [id number] Insurance MEDICARE [facility]IC[facility] Advance Directives For more information, please contact: [phone] * Full Code (Latest Code Status on File) Date Activated Date Inactivated Comments 01/11/2024 4:42 PM 01/13/2024 4:49 PM Care Teams Profile Shaper Operator Relationship Specialty Start Date End Date Desiree Feliciano NET LEAD DEVELOPER [address] [place] [address] [place] [address] PCP - General Family Practice 12/15/23 Olvin Flores MD [address] [facility] [address] [place] [address] Consulting Physician Urology 01/13/24
== END 2025-06-26 09:34 | disposition home or self-care (01) ==
PROVIDERS: PCP Nurse Practitioner Family; Visit Provider Urology
DX: N20.0 Calculus of kidney (principal)
CPT/HCPCS: 74018